=== PATIENT | male | born 1980 | race African-American/Black ===

== ENCOUNTER 2016-12-12 20:23 | Emergency (ER) | payer OTHER ==
[~2016-12-12] VITALS: Ht 177.8 cm; Wt 81.7 kg
[2016-12-12] MEDS ORDERED: TRAMADOL 50 MG50 MG PO (21:28)
[2016-12-12] MEDS ORDERED: IBUPROFEN 600600 M1 PO (21:28)
[2016-12-12 21:48] VITALS: BP 142/59
== END 2016-12-12 21:50 | disposition home or self-care (01) ==
LOC: ER 20:23
DX: S49.92XA Unspecified injury of left shoulder and upper arm, initial encounter (principal); X58.XXXA Exposure to other specified factors, initial encounter; Y93.61 Activity, american tackle football; Y92.89 Other specified places as the place of occurrence of the external cause; Y99.8 Other external cause status